=== PATIENT | female | born 1970 | race Caucasian/White ===

== ENCOUNTER 2017-12-20 15:43 | Inpatient (IN) | payer MEDICAID, OTHER ==
[~2017-12-20] VITALS: Ht 162.6 cm; Wt 79.8 kg
[2017-12-20] MEDS ORDERED: LEVO50 PO (15:56)
[2017-12-20] MEDS ORDERED: OXCA300T PO (15:56)
[2017-12-20] MEDS ORDERED: MELO-107 PO (15:56)
[2017-12-20] MEDS ORDERED: QUET25TA PO (15:56)
[2017-12-20] MEDS ORDERED: HYDR-308 PO (15:56)
[2017-12-20] MEDS ORDERED: DIPH25 PO (15:56)
[2017-12-20] MEDS ORDERED: VITAD1000 PO (15:56)
[2017-12-20] MEDS ORDERED: PROP40TA7 PO (15:56)
[2017-12-20] MEDS ORDERED: DULO60CA44 PO (15:56)
[2017-12-20] MEDS ORDERED: MECL12.585 PO (15:56)
[2017-12-20] MEDS ORDERED: CYCL10 PO (15:56)
[2017-12-20] MEDS ORDERED: HYDR50CA10 PO (15:56)
[2017-12-20] MEDS ORDERED: BACL10TA PO (15:56)
[2017-12-20 16:42] LABS: BASOPHILS % (AUTO) 0.7 % (0.0-2.0); EOSINOPHILS % (AUTO) 0.7 % (1.0-6.0); HEMATOCRIT 41.8 % (36-46); HEMOGLOBIN 14.4 g/dL (12.0-16.0); LYMPHOCYTES # (AUTO) 2.2 K/uL (1.0-4.8); LYMPHOCYTES % (AUTO) 19.3 % (22.0-44.0); MEAN CORPUSCULAR HEMOGLOBIN 30.6 pg (26.0-34.0); MEAN CORPUSCULAR HGB CONC 34.4 G/dL (31.0-37.0); MEAN CORPUSCULAR VOLUME 89 fL (80-100); MONOCYTES % (AUTO) 8.5 % (2.0-9.0); NEUTROPHILS # (AUTO) 8.2 K/uL (1.8-7.7); NEUTROPHILS % (AUTO) 70.8 % (40.0-70.0); PLATELET COUNT (AUTO) 333 K/uL (150-450); RED CELL DISTRIBUTION WIDTH 14.2 % (11.5-14.5)
[2017-12-20 16:56] LABS: ANION GAP 12 mmol/L (8-16); CALCIUM, TOTAL 8.2 mg/dL (8.8-10.5); CARBON DIOXIDE 25 mmol/L (22-29); CHLORIDE 103 mmol/L (98-107); CREATININE 0.62 mg/dL (0.60-1.30); GLOMERULAR FILTR. RATE CALC > 60 mL/min (>60); GLUCOSE,RANDOM 101 mg/dL (70-110); POTASSIUM 3.8 mmol/L (3.5-5.1); SODIUM SERUM 140 mmol/L (136-145); UREA NITROGEN, BLOOD 6 mg/dL (7-18)
[2017-12-20 17:00] LABS: ALBUMIN 3.9 g/dL (3.4-5.0)
[2017-12-20 17:07] LABS: AMPHET/METH SCREEN,URINE NEGATIVE (NEGATIVE); BARBITURATE SCREEN, URINE NEGATIVE (NEGATIVE); BENZODIAZEPINES SCREEN,URINE NEGATIVE (NEGATIVE); COCAINE SCREEN,URINE NEGATIVE (NEGATIVE); METHADONE SCREEN, URINE NEGATIVE (NEGATIVE); OPIATE SCREEN,URINE POSITIVE (NEGATIVE)
[2017-12-20 17:13] LABS: ALANINE AMINOTRANSFERASE 31 U/L (12-78); ALKALINE PHOSPHATASE 72 U/L (46-116); ASPARTATE AMINOTRANSFERASE 31 U/L (15-37); BILIRUBIN,TOTAL 0.4 mg/dL (0.1-1.0)
[2017-12-20 17:16] LABS: PHENCYCLIDINE SCREEN,URINE NEGATIVE (NEGATIVE)
[2017-12-20 17:31] LABS: CANNABINOID SCREEN,URINE POSITIVE (NEGATIVE)
[2017-12-20] MEDS ORDERED: IBUPROFEN 400 MG TABLET PO PRN (19:00)
[2017-12-20] MEDS ORDERED: ACETAMINOPHEN 325 MG TABLET PO PRN (19:00)
[2017-12-20] MEDS: LORazepam 2 MG TABLET PO PRN (19:21)
[2017-12-20 21:27] VITALS: BP 120/70
[2017-12-20] MEDS: ZOLPIDEM TARTRATE 10 MG TABLET PO PRN (21:34)
[2017-12-20] MEDS ORDERED: PNEUMOCOCCAL VACCINE POLYVALENT 0.5 ML VIAL [PPSV23] IM ONE (22:15)
[2017-12-20] MEDS ORDERED: PETROLATUM,WHITE 71 GM JELLY TP PRN (22:15)
[2017-12-20] MEDS ORDERED: ALBUTEROL SULFATE HFA 90 MCG/PUFF 8 GM INHALER IH PRN (22:15)
[2017-12-20] MEDS ORDERED: LOPERAMIDE HCL 2 MG CAPSULE PO PRN (22:15)
[2017-12-20] MEDS ORDERED: GuaiFENesin/D-METHORPHAN [SUGAR-FREE] 200-20MG/10 ML SYRUP UDCUP PO PRN (22:15)
[2017-12-20] MEDS ORDERED: ONDANSETRON HCL 4 MG TABLET PO PRN (22:15)
[2017-12-20] MEDS ORDERED: NICOTINE 14 MG/24 HOUR PATCH TD PRN (22:15)
[2017-12-21 06:05] VITALS: BP 112/65
[2017-12-21 08:29] LABS: BASOPHILS % (AUTO) 0.4 % (0.0-2.0); EOSINOPHILS % (AUTO) 1.5 % (1.0-6.0); HEMATOCRIT 45.7 % (36-46); HEMOGLOBIN 15.4 g/dL (12.0-16.0); LYMPHOCYTES # (AUTO) 1.7 K/uL (1.0-4.8); LYMPHOCYTES % (AUTO) 25.7 % (22.0-44.0); MEAN CORPUSCULAR HEMOGLOBIN 30.8 pg (26.0-34.0); MEAN CORPUSCULAR HGB CONC 33.7 G/dL (31.0-37.0); MEAN CORPUSCULAR VOLUME 91 fL (80-100); MONOCYTES # (AUTO) 0.7 K/uL (0.1-1.0); MONOCYTES % (AUTO) 10.7 % (2.0-9.0); NEUTROPHILS # (AUTO) 4.1 K/uL (1.8-7.7); NEUTROPHILS % (AUTO) 61.7 % (40.0-70.0); PLATELET COUNT (AUTO) 321 K/uL (150-450); RED BLOOD CELL COUNT(AUTO) 5.02 MIL/uL (4.00-5.20); RED CELL DISTRIBUTION WIDTH 14.1 % (11.5-14.5)
[2017-12-21 08:31] VITALS: BP 146/84
[2017-12-21 08:50] LABS: HEMOGLOBIN A1C 5.3 % (4.5-6.2)
[2017-12-21 09:13] LABS: ALANINE AMINOTRANSFERASE 27 U/L (12-78); ALBUMIN 3.5 g/dL (3.4-5.0); ALKALINE PHOSPHATASE 64 U/L (46-116); ANION GAP 8 mmol/L (8-16); ASPARTATE AMINOTRANSFERASE 24 U/L (15-37); BILIRUBIN,TOTAL 0.6 mg/dL (0.1-1.0); CALCIUM, TOTAL 8.6 mg/dL (8.8-10.5); CARBON DIOXIDE 28 mmol/L (22-29); CHLORIDE 103 mmol/L (98-107); CHOL/HDL RATIO 3.1 (3.9-5.7); CHOLESTEROL 189 mg/dL (131-200); CREATININE 0.67 mg/dL (0.60-1.30); GLOMERULAR FILTR. RATE CALC > 60 mL/min (>60); GLUCOSE,RANDOM 109 mg/dL (70-110); HDL CHOLESTEROL 61 mg/dL (40-60); LDL CHOL (CALC.) 104 mg/dL (0-130); POTASSIUM 3.8 mmol/L (3.5-5.1); SODIUM SERUM 139 mmol/L (136-145); THYROID STIMULATING HORMONE 1.14 uIU/mL (0.36-3.74); TOTAL PROTEIN, SERUM 6.1 g/dL (6.4-8.2); TRIGLYCERIDES 118 mg/dL (15-150); UREA NITROGEN, BLOOD 11 mg/dL (7-18)
[2017-12-21] MEDS ORDERED: CloNIDine HCL 0.1 MG TABLET PO PRN (09:30)
[2017-12-21] MEDS ORDERED: MAGNESIUM HYDROXIDE SUSPENSION 30 ML UDCUP PO PRN (09:30)
[2017-12-21] MEDS ORDERED: MAG HYDROX/AL HYDROX/SIMETH ES 30 ML SUSPENSION UDCUP PO PRN (09:30)
[2017-12-21] MEDS: HydrOXYzine PAMOATE 50 MG CAPSULE PO SCH ×2 (10:11→16:23)
[2017-12-21] MEDS: DULoxetine HCL 60 MG CAPSULE PO SCH (10:12)
[2017-12-21] MEDS: LORazepam 2 MG TABLET PO PRN (10:12)
[2017-12-21] MEDS: HALOPERIDOL 5 MG TABLET PO PRN ×2 (10:12→16:23)
[2017-12-21] MEDS: OXcarbazepine 300 MG TABLET PO SCH ×2 (10:12→16:23)
[2017-12-21] MEDS: QUEtiapine FUMARATE 25 MG TABLET PO SCH (10:12)
[2017-12-21 16:00] VITALS: BP 130/89
[2017-12-21] MEDS: MECLIZINE HCL 12.5 MG TABLET PO SCH (17:00)
[2017-12-21] MEDS: BACLOFEN 10 MG TABLET PO SCH (17:00)
[2017-12-21] MEDS: CYCLOBENZAPRINE HCL 10 MG TABLET PO SCH (21:59)
[2017-12-22] MEDS: MELOXICAM 7.5 MG TABLET PO SCH (07:05)
[2017-12-22 07:22] VITALS: BP 135/77
[2017-12-22 08:40] VITALS: BP 121/66
[2017-12-22] MEDS: DULoxetine HCL 60 MG CAPSULE PO SCH (09:19)
[2017-12-22] MEDS: CHOLECALCIFEROL (VIT D3) 1,000 UNITS TABLET PO SCH (09:20)
[2017-12-22] MEDS: QUEtiapine FUMARATE 25 MG TABLET PO SCH (09:20)
[2017-12-22] MEDS: OXcarbazepine 300 MG TABLET PO SCH ×2 (09:21→16:55)
[2017-12-22] MEDS: CYCLOBENZAPRINE HCL 10 MG TABLET PO SCH ×3 (09:21→16:54)
[2017-12-22] MEDS: HydrOXYzine PAMOATE 50 MG CAPSULE PO SCH ×2 (09:22→16:55)
[2017-12-22] MEDS: BACLOFEN 10 MG TABLET PO SCH ×2 (09:23→16:55)
[2017-12-22] MEDS: MECLIZINE HCL 12.5 MG TABLET PO SCH ×2 (09:23→16:55)
[2017-12-22] MEDS: LORazepam 2 MG TABLET PO PRN ×3 (09:52→20:34)
[2017-12-22] MEDS: NICOTINE 7 MG/24 HOUR PATCH TD SCH (10:56)
[2017-12-22 16:20] VITALS: BP 126/69
[2017-12-22] MEDS: ZOLPIDEM TARTRATE 10 MG TABLET PO PRN (20:34)
[2017-12-22 22:38] VITALS: BP 140/87
[2017-12-22] MEDS: HALOPERIDOL 5 MG TABLET PO PRN (22:39)
[2017-12-22] MEDS: HYDROCODONE/ACETAMINOPHEN 5-325 MG TABLET PO PRN (22:40)
[2017-12-23 06:35] VITALS: BP 102/60
[2017-12-23] MEDS: MELOXICAM 7.5 MG TABLET PO SCH (07:10)
[2017-12-23 09:00] VITALS: BP 140/98
[2017-12-23] MEDS: OXcarbazepine 300 MG TABLET PO SCH ×2 (09:00→16:08)
[2017-12-23] MEDS: DULoxetine HCL 60 MG CAPSULE PO SCH (09:00)
[2017-12-23] MEDS: HydrOXYzine PAMOATE 50 MG CAPSULE PO SCH ×2 (09:00→16:08)
[2017-12-23] MEDS: QUEtiapine FUMARATE 25 MG TABLET PO SCH (09:00)
[2017-12-23] MEDS: BACLOFEN 10 MG TABLET PO SCH ×2 (09:00→16:09)
[2017-12-23] MEDS: NICOTINE 7 MG/24 HOUR PATCH TD SCH (09:00)
[2017-12-23] MEDS: CHOLECALCIFEROL (VIT D3) 1,000 UNITS TABLET PO SCH (09:00)
[2017-12-23] MEDS: CYCLOBENZAPRINE HCL 10 MG TABLET PO SCH ×3 (09:00→16:07)
[2017-12-23] MEDS: MECLIZINE HCL 12.5 MG TABLET PO SCH ×2 (09:00→16:09)
[2017-12-23] MEDS: LORazepam 2 MG TABLET PO PRN ×2 (10:11→17:24)
[2017-12-23 11:42] VITALS: BP 141/96
[2017-12-23] MEDS: HYDROCODONE/ACETAMINOPHEN 5-325 MG TABLET PO PRN ×2 (11:42→18:48)
[2017-12-23] MEDS: MetFORMIN HCL 500 MG TABLET PO SCH (12:00)
[2017-12-23] MEDS ORDERED: SUMAtriptan SUCCINATE 25 MG TABLET PO PRN (12:30)
[2017-12-23] MEDS: HALOPERIDOL 5 MG TABLET PO PRN (16:08)
[2017-12-23] MEDS: KETOCONAZOLE 2% 15 GM CREAM TP SCH (16:14)
[2017-12-23 16:25] VITALS: BP 123/82
[2017-12-23 18:45] VITALS: BP 145/84
[2017-12-23] MEDS: ATORVASTATIN CALCIUM 10 MG TABLET PO SCH (20:53)
[2017-12-23] MEDS: ZOLPIDEM TARTRATE 10 MG TABLET PO PRN (20:53)
[2017-12-24] MEDS: MELOXICAM 7.5 MG TABLET PO SCH (06:43)
[2017-12-24] MEDS: LEVOTHYROXINE SODIUM 50 MCG TABLET PO SCH (06:43)
[2017-12-24] MEDS: MetFORMIN HCL 500 MG TABLET PO SCH (06:43)
[2017-12-24 06:50] VITALS: BP 139/100
[2017-12-24] MEDS: HYDROCODONE/ACETAMINOPHEN 5-325 MG TABLET PO PRN ×2 (06:54→16:44)
[2017-12-24 07:27] VITALS: BP 139/90
[2017-12-24 08:20] VITALS: BP 134/66
[2017-12-24] MEDS: MECLIZINE HCL 12.5 MG TABLET PO SCH ×2 (09:36→16:42)
[2017-12-24] MEDS: LOSARTAN POTASSIUM 50 MG TABLET PO SCH (09:36)
[2017-12-24] MEDS: BACLOFEN 10 MG TABLET PO SCH ×2 (09:36→16:43)
[2017-12-24] MEDS: CYCLOBENZAPRINE HCL 10 MG TABLET PO SCH ×3 (09:37→16:43)
[2017-12-24] MEDS: OXcarbazepine 300 MG TABLET PO SCH ×2 (09:37→16:44)
[2017-12-24] MEDS: DULoxetine HCL 60 MG CAPSULE PO SCH (09:37)
[2017-12-24] MEDS: KETOCONAZOLE 2% 15 GM CREAM TP SCH ×2 (09:37→16:45)
[2017-12-24] MEDS: HydrOXYzine PAMOATE 50 MG CAPSULE PO SCH ×2 (09:38→16:44)
[2017-12-24] MEDS: CHOLECALCIFEROL (VIT D3) 1,000 UNITS TABLET PO SCH (09:38)
[2017-12-24] MEDS: NICOTINE 7 MG/24 HOUR PATCH TD SCH (09:41)
[2017-12-24] MEDS: LORazepam 2 MG TABLET PO PRN ×2 (10:10→16:44)
[2017-12-24] MEDS: HALOPERIDOL 5 MG TABLET PO PRN (13:08)
[2017-12-24 16:44] VITALS: BP 130/92
[2017-12-24] MEDS: QUEtiapine FUMARATE 300 MG TABLET PO SCH (20:15)
[2017-12-24] MEDS: ATORVASTATIN CALCIUM 10 MG TABLET PO SCH (20:15)
[2017-12-24] MEDS: ZOLPIDEM TARTRATE 10 MG TABLET PO PRN (20:38)
[2017-12-25] MEDS: MetFORMIN HCL 500 MG TABLET PO SCH (06:38)
[2017-12-25] MEDS: MELOXICAM 7.5 MG TABLET PO SCH (06:39)
[2017-12-25] MEDS: LEVOTHYROXINE SODIUM 50 MCG TABLET PO SCH (06:39)
[2017-12-25 07:01] VITALS: BP 129/64
[2017-12-25 08:08] VITALS: BP 139/75
[2017-12-25] MEDS: KETOCONAZOLE 2% 15 GM CREAM TP SCH ×2 (09:34→16:39)
[2017-12-25] MEDS: HydrOXYzine PAMOATE 50 MG CAPSULE PO SCH ×2 (09:35→16:39)
[2017-12-25] MEDS: CYCLOBENZAPRINE HCL 10 MG TABLET PO SCH ×3 (09:35→16:38)
[2017-12-25] MEDS: DULoxetine HCL 60 MG CAPSULE PO SCH (09:35)
[2017-12-25] MEDS: CHOLECALCIFEROL (VIT D3) 1,000 UNITS TABLET PO SCH (09:35)
[2017-12-25] MEDS: DOCUSATE SODIUM 100 MG CAPSULE PO PRN (09:35)
[2017-12-25] MEDS: OXcarbazepine 300 MG TABLET PO SCH ×2 (09:35→16:39)
[2017-12-25] MEDS: MECLIZINE HCL 12.5 MG TABLET PO SCH ×2 (09:35→16:38)
[2017-12-25] MEDS: LOSARTAN POTASSIUM 50 MG TABLET PO SCH (09:36)
[2017-12-25] MEDS: BACLOFEN 10 MG TABLET PO SCH ×2 (09:37→16:39)
[2017-12-25] MEDS: NICOTINE 7 MG/24 HOUR PATCH TD SCH (09:38)
[2017-12-25] MEDS: LORazepam 2 MG TABLET PO PRN ×3 (10:51→23:45)
[2017-12-25 11:04] VITALS: BP 142/95
[2017-12-25] MEDS: HYDROCODONE/ACETAMINOPHEN 5-325 MG TABLET PO PRN ×2 (11:04→17:53)
[2017-12-25 17:53] VITALS: BP 150/89
[2017-12-25 18:53] VITALS: BP 136/89
[2017-12-25] MEDS: ZOLPIDEM TARTRATE 10 MG TABLET PO PRN (20:32)
[2017-12-25] MEDS: QUEtiapine FUMARATE 300 MG TABLET PO SCH (20:32)
[2017-12-25] MEDS: ATORVASTATIN CALCIUM 10 MG TABLET PO SCH (20:32)
[2017-12-26 03:08] VITALS: BP 138/88
[2017-12-26] MEDS: LEVOTHYROXINE SODIUM 50 MCG TABLET PO SCH (06:35)
[2017-12-26] MEDS: MetFORMIN HCL 500 MG TABLET PO SCH (06:35)
[2017-12-26] MEDS: MELOXICAM 7.5 MG TABLET PO SCH (06:35)
[2017-12-26 08:15] VITALS: BP 126/81
[2017-12-26] MEDS: DULoxetine HCL 60 MG CAPSULE PO SCH (09:28)
[2017-12-26] MEDS: OXcarbazepine 300 MG TABLET PO SCH ×2 (09:28→17:14)
[2017-12-26] MEDS: CHOLECALCIFEROL (VIT D3) 1,000 UNITS TABLET PO SCH (09:28)
[2017-12-26] MEDS: HydrOXYzine PAMOATE 50 MG CAPSULE PO SCH ×2 (09:28→17:14)
[2017-12-26] MEDS: CYCLOBENZAPRINE HCL 10 MG TABLET PO SCH ×3 (09:28→17:14)
[2017-12-26] MEDS: KETOCONAZOLE 2% 15 GM CREAM TP SCH ×2 (09:29→17:14)
[2017-12-26] MEDS: MECLIZINE HCL 12.5 MG TABLET PO SCH ×2 (09:29→17:14)
[2017-12-26] MEDS: LOSARTAN POTASSIUM 50 MG TABLET PO SCH (09:29)
[2017-12-26] MEDS: BACLOFEN 10 MG TABLET PO SCH ×2 (09:32→17:17)
[2017-12-26] MEDS: NICOTINE 7 MG/24 HOUR PATCH TD SCH (09:32)
[2017-12-26] MEDS: LORazepam 2 MG TABLET PO PRN ×2 (12:40→17:17)
[2017-12-26 13:33] VITALS: BP 148/98
[2017-12-26] MEDS: HYDROCODONE/ACETAMINOPHEN 5-325 MG TABLET PO PRN (13:36)
[2017-12-26 14:36] VITALS: BP 134/94
[2017-12-26 16:31] VITALS: BP 138/98
[2017-12-26] MEDS: QUEtiapine FUMARATE 25 MG TABLET PO SCH (17:15)
[2017-12-26] MEDS: HALOPERIDOL 5 MG TABLET PO PRN (17:17)
[2017-12-26] MEDS: ATORVASTATIN CALCIUM 10 MG TABLET PO SCH (20:12)
[2017-12-26] MEDS: QUEtiapine FUMARATE 300 MG TABLET PO SCH (20:12)
[2017-12-26] MEDS: ZOLPIDEM TARTRATE 10 MG TABLET PO PRN (20:12)
[2017-12-27] MEDS: MELOXICAM 7.5 MG TABLET PO SCH (06:44)
[2017-12-27] MEDS: LEVOTHYROXINE SODIUM 50 MCG TABLET PO SCH (06:44)
[2017-12-27] MEDS: MetFORMIN HCL 500 MG TABLET PO SCH (06:45)
[2017-12-27 06:50] VITALS: BP 151/100
[2017-12-27] MEDS: LORazepam 2 MG TABLET PO PRN (06:59)
[2017-12-27] MEDS: HALOPERIDOL 5 MG TABLET PO PRN (06:59)
[2017-12-27 08:06] VITALS: BP 138/94
[2017-12-27] MEDS: MECLIZINE HCL 12.5 MG TABLET PO SCH (08:40)
[2017-12-27] MEDS: HydrOXYzine PAMOATE 50 MG CAPSULE PO SCH (08:40)
[2017-12-27] MEDS: DOCUSATE SODIUM 100 MG CAPSULE PO PRN (08:40)
[2017-12-27] MEDS: LOSARTAN POTASSIUM 50 MG TABLET PO SCH (08:40)
[2017-12-27] MEDS: BACLOFEN 10 MG TABLET PO SCH (08:40)
[2017-12-27] MEDS: DULoxetine HCL 60 MG CAPSULE PO SCH (08:41)
[2017-12-27] MEDS: QUEtiapine FUMARATE 25 MG TABLET PO SCH (08:41)
[2017-12-27] MEDS: CHOLECALCIFEROL (VIT D3) 1,000 UNITS TABLET PO SCH (08:41)
[2017-12-27] MEDS: OXcarbazepine 300 MG TABLET PO SCH (08:41)
[2017-12-27] MEDS: NICOTINE 7 MG/24 HOUR PATCH TD SCH (08:41)
[2017-12-27] MEDS: CYCLOBENZAPRINE HCL 10 MG TABLET PO SCH (08:41)
[2017-12-27] MEDS: KETOCONAZOLE 2% 15 GM CREAM TP SCH (08:42)
[2017-12-27] MEDS ORDERED: KETO15CR2 TP (11:52)
[2017-12-27] MEDS ORDERED: ATOR10TA84 PO (12:00)
[2017-12-27] MEDS ORDERED: LOSA25TA2 PO (12:00)
[2017-12-27] MEDS ORDERED: METF500T PO (12:00)
[2017-12-27] MEDS ORDERED: QUET50TA PO (12:01)
[2017-12-27] MEDS ORDERED: QUET300T2 PO (12:01)
== END 2017-12-27 13:17 | disposition home or self-care (01) | DRG 750 ==
LOC: EMS 15:44 → B3A 19:30
PROVIDERS: ADMIT Psychiatry & Neurology Child & Adolescent Psychiatry; ATTEND Psychiatry & Neurology Child & Adolescent Psychiatry
DX: F25.0 Schizoaffective disorder, bipolar type (principal); I10 Essential (primary) hypertension; J45.909 Unspecified asthma, uncomplicated; E78.00 Pure hypercholesterolemia, unspecified; G47.30 Sleep apnea, unspecified; G43.909 Migraine, unspecified, not intractable, without status migrainosus; E78.5 Hyperlipidemia, unspecified; E55.9 Vitamin D deficiency, unspecified; E03.9 Hypothyroidism, unspecified; F32.9 Major depressive disorder, single episode, unspecified; D72.829 Elevated white blood cell count, unspecified; F99 Mental disorder, not otherwise specified; F41.9 Anxiety disorder, unspecified; Z88.8 Allergy status to other drugs, medicaments and biological substances; Z81.8 Family history of other mental and behavioral disorders; Z79.899 Other long term (current) drug therapy
CPT/HCPCS: 83036; 84443; 99285; G0480

== ENCOUNTER 2018-01-04 22:33 | Emergency (ER) | payer MEDICAID, OTHER ==
[~2018-01-04] VITALS: Ht 162.6 cm; Wt 75.0 kg
[~2018-01-04 22:33] MED LIST: ATOR10TA84 PO; BACL10TA PO; CYCL10 PO; DULO60CA44 PO; HYDR50CA10 PO; KETO15CR2 TP; LEVO50 PO; LOSA25TA2 PO; MECL12.585 PO; MELO-107 PO; METF500T PO; OXCA300T PO; QUET300T2 PO; QUET50TA PO; VITAD1000 PO
[2018-01-04 22:48] LABS: GLUCOSE,POINT OF CARE 135 MG/DL (70-110)
[2018-01-04 23:03] LABS: BASOPHILS % (AUTO) 0.7 % (0.0-2.0); EOSINOPHILS % (AUTO) 1.1 % (1.0-6.0); HEMATOCRIT 43.4 % (36-46); HEMOGLOBIN 14.9 g/dL (12.0-16.0); LYMPHOCYTES # (AUTO) 3.2 K/uL (1.0-4.8); LYMPHOCYTES % (AUTO) 25.3 % (22.0-44.0); MEAN CORPUSCULAR HEMOGLOBIN 30.6 pg (26.0-34.0); MEAN CORPUSCULAR HGB CONC 34.4 G/dL (31.0-37.0); MEAN CORPUSCULAR VOLUME 89 fL (80-100); MONOCYTES # (AUTO) 1.2 K/uL (0.1-1.0); MONOCYTES % (AUTO) 9.4 % (2.0-9.0); NEUTROPHILS # (AUTO) 8.1 K/uL (1.8-7.7); NEUTROPHILS % (AUTO) 63.5 % (40.0-70.0); PLATELET COUNT (AUTO) 320 K/uL (150-450); RED BLOOD CELL COUNT(AUTO) 4.88 MIL/uL (4.00-5.20); RED CELL DISTRIBUTION WIDTH 13.6 % (11.5-14.5)
[2018-01-04 23:09] LABS: AMPHET/METH SCREEN,URINE NEGATIVE (NEGATIVE); BARBITURATE SCREEN, URINE NEGATIVE (NEGATIVE); BENZODIAZEPINES SCREEN,URINE POSITIVE (NEGATIVE); CANNABINOID SCREEN,URINE POSITIVE (NEGATIVE); COCAINE SCREEN,URINE NEGATIVE (NEGATIVE); METHADONE SCREEN, URINE NEGATIVE (NEGATIVE); OPIATE SCREEN,URINE POSITIVE (NEGATIVE)
[2018-01-04 23:10] LABS: PHENCYCLIDINE SCREEN,URINE NEGATIVE (NEGATIVE)
[2018-01-04 23:17] LABS: ALANINE AMINOTRANSFERASE 44 U/L (12-78); ALBUMIN 3.5 g/dL (3.4-5.0); ALKALINE PHOSPHATASE 75 U/L (46-116); ANION GAP 10 mmol/L (8-16); ASPARTATE AMINOTRANSFERASE 45 U/L (15-37); BILIRUBIN,TOTAL 0.6 mg/dL (0.1-1.0); CALCIUM, TOTAL 9.1 mg/dL (8.8-10.5); CARBON DIOXIDE 27 mmol/L (22-29); CHLORIDE 102 mmol/L (98-107); CREATININE 0.81 mg/dL (0.60-1.30); GLOMERULAR FILTR. RATE CALC > 60 mL/min (>60); GLUCOSE,RANDOM 115 mg/dL (70-110); POTASSIUM 3.2 mmol/L (3.5-5.1); SODIUM SERUM 139 mmol/L (136-145); TOTAL PROTEIN, SERUM 6.8 g/dL (6.4-8.2)
[2018-01-04 23:28] LABS: UREA NITROGEN, BLOOD 7 mg/dL (7-18)
[2018-01-05] MEDS ORDERED: POTASSIUM CHLORIDE 20 MEQ ER TABLET PO ONE
[2018-01-05] MEDS ORDERED: DiphenhydrAMINE HCL 25 MG CAPSULE PO ONE (00:15)
[2018-01-05] MEDS ORDERED: LORazepam 2 MG TABLET PO ONE (00:15)
[2018-01-05 00:19] VITALS: BP 162/93
== END 2018-01-05 00:29 | disposition home or self-care (01) ==
LOC: EMS 22:33
DX: F25.9 Schizoaffective disorder, unspecified (principal); E87.6 Hypokalemia; I10 Essential (primary) hypertension; E78.00 Pure hypercholesterolemia, unspecified; F31.9 Bipolar disorder, unspecified; F41.9 Anxiety disorder, unspecified; J45.909 Unspecified asthma, uncomplicated; Z88.8 Allergy status to other drugs, medicaments and biological substances; Z79.84 Long term (current) use of oral hypoglycemic drugs; Z79.899 Other long term (current) drug therapy
CPT/HCPCS: 36415; 80053; 80307; 82962; 85025; 99284; G0480

== ENCOUNTER 2018-11-02 02:59 | Emergency (ER) | payer OTHER ==
[~2018-11-02] VITALS: Ht 162.6 cm; Wt 72.7 kg
[~2018-11-02 02:59] MED LIST changes: -OXCA300T PO; +OXCA300T29 PO
[2018-11-02] MEDS ORDERED: LOSA50TA64 PO (03:18)
[2018-11-02] MEDS ORDERED: ARIP5TAB8 PO (03:18)
[2018-11-02] MEDS ORDERED: PANT40TA25 PO (03:18)
[2018-11-02 03:19] VITALS: BP 113/83
[2018-11-02 03:29] LABS: GLUCOSE,POINT OF CARE 111 MG/DL (70-110)
[2018-11-02 04:24] LABS: BASOPHILS % (AUTO) 0.5 % (0.0-2.0); HEMATOCRIT 42.6 % (36-46); HEMOGLOBIN 13.9 g/dL (12.0-16.0); LYMPHOCYTES # (AUTO) 2.6 K/uL (1.0-4.8); LYMPHOCYTES % (AUTO) 26.3 % (22.0-44.0); MEAN CORPUSCULAR HEMOGLOBIN 29.9 pg (26.0-34.0); MEAN CORPUSCULAR HGB CONC 32.6 G/dL (31.0-37.0); MEAN CORPUSCULAR VOLUME 92 fL (80-100); MONOCYTES # (AUTO) 0.9 K/uL (0.1-1.0); MONOCYTES % (AUTO) 8.8 % (2.0-9.0); NEUTROPHILS # (AUTO) 6.1 K/uL (1.8-7.7); NEUTROPHILS % (AUTO) 62.4 % (40.0-70.0); PLATELET COUNT (AUTO) 353 K/uL (150-450); RED BLOOD CELL COUNT(AUTO) 4.64 MIL/uL (4.00-5.20); RED CELL DISTRIBUTION WIDTH 14.4 % (11.5-14.5)
[2018-11-02 04:34] LABS: ANION GAP 7 mmol/L (8-16); CARBON DIOXIDE 30 mmol/L (22-29); CHLORIDE 102 mmol/L (98-107); GLOMERULAR FILTR. RATE CALC > 60 mL/min (>60); GLUCOSE,RANDOM 98 mg/dL (70-110); POTASSIUM 3.9 mmol/L (3.5-5.1); SODIUM SERUM 139 mmol/L (136-145); UREA NITROGEN, BLOOD 12 mg/dL (7-18)
[2018-11-02 04:48] LABS: ALANINE AMINOTRANSFERASE 33 U/L (12-78); ALBUMIN 3.5 g/dL (3.4-5.0); ALKALINE PHOSPHATASE 60 U/L (46-116); ASPARTATE AMINOTRANSFERASE 19 U/L (15-37); BILIRUBIN,TOTAL 0.2 mg/dL (0.1-1.0); HCG,QUANTITATIVE < 1 mIU/mL (0-6); TOTAL PROTEIN, SERUM 6.7 g/dL (6.4-8.2)
== END 2018-11-02 06:00 | disposition home or self-care (01) ==
LOC: EMS 03:01
DX: T16.2XXA Foreign body in left ear, initial encounter (principal); F20.9 Schizophrenia, unspecified; J45.909 Unspecified asthma, uncomplicated; F31.9 Bipolar disorder, unspecified; E78.00 Pure hypercholesterolemia, unspecified; F41.9 Anxiety disorder, unspecified; I10 Essential (primary) hypertension; Z88.8 Allergy status to other drugs, medicaments and biological substances; W22.8XXA Striking against or struck by other objects, initial encounter; Y93.89 Activity, other specified; Y92.89 Other specified places as the place of occurrence of the external cause; Y99.8 Other external cause status
CPT/HCPCS: 36415; 80053; 82962; 84702; 85025; 99284; G0480; 69200

== ENCOUNTER 2018-11-24 08:45 | Inpatient (IN) | payer MEDICAID, OTHER ==
[~2018-11-24] VITALS: Ht 162.6 cm; Wt 79.2 kg
[~2018-11-24 08:45] MED LIST changes: +ARIP5TAB8 PO; -ATOR10TA84 PO; -BACL10TA PO; -CYCL10 PO; -DULO60CA44 PO; -HYDR50CA10 PO; -KETO15CR2 TP; -LEVO50 PO; -LOSA25TA2 PO; +LOSA50TA64 PO; -MECL12.585 PO; -MELO-107 PO; -METF500T PO; -OXCA300T29 PO; +PANT40TA25 PO; -QUET50TA PO; -VITAD1000 PO
[2018-11-24 09:34] LABS: BASOPHILS % (AUTO) 0.4 % (0.0-2.0); EOSINOPHILS % (AUTO) 0.4 % (1.0-6.0); HEMATOCRIT 41.7 % (36-46); HEMOGLOBIN 13.7 g/dL (12.0-16.0); LYMPHOCYTES # (AUTO) 1.2 K/uL (1.0-4.8); MEAN CORPUSCULAR HEMOGLOBIN 29.8 pg (26.0-34.0); MEAN CORPUSCULAR HGB CONC 32.9 G/dL (31.0-37.0); MEAN CORPUSCULAR VOLUME 91 fL (80-100); MONOCYTES # (AUTO) 0.6 K/uL (0.1-1.0); MONOCYTES % (AUTO) 5.7 % (2.0-9.0); NEUTROPHILS # (AUTO) 9.2 K/uL (1.8-7.7); NEUTROPHILS % (AUTO) 82.5 % (40.0-70.0); PLATELET COUNT (AUTO) 403 K/uL (150-450); RED BLOOD CELL COUNT(AUTO) 4.61 MIL/uL (4.00-5.20); RED CELL DISTRIBUTION WIDTH 14.5 % (11.5-14.5)
[2018-11-24] MEDS ORDERED: DIVA125T32 PO (09:38)
[2018-11-24] MEDS ORDERED: LOSA25TA41 PO (09:38)
[2018-11-24] MEDS ORDERED: RISP.5 PO (09:38)
[2018-11-24] MEDS ORDERED: LEVO50 PO (09:38)
[2018-11-24 09:46] LABS: ANION GAP 8 mmol/L (8-16); CALCIUM, TOTAL 9.4 mg/dL (8.8-10.5); CARBON DIOXIDE 27 mmol/L (22-29); CHLORIDE 102 mmol/L (98-107); CREATININE 0.56 mg/dL (0.60-1.30); GLOMERULAR FILTR. RATE CALC > 60 mL/min (>60); GLUCOSE,RANDOM 110 mg/dL (70-110); POTASSIUM 3.7 mmol/L (3.5-5.1); SODIUM SERUM 137 mmol/L (136-145); UREA NITROGEN, BLOOD 9 mg/dL (7-18)
[2018-11-24 09:57] LABS: ALANINE AMINOTRANSFERASE 28 U/L (12-78); ALBUMIN 3.9 g/dL (3.4-5.0); ALKALINE PHOSPHATASE 70 U/L (46-116); ASPARTATE AMINOTRANSFERASE 19 U/L (15-37); BILIRUBIN,TOTAL 0.6 mg/dL (0.1-1.0); HCG,QUANTITATIVE < 1 mIU/mL (0-6); TOTAL PROTEIN, SERUM 7.6 g/dL (6.4-8.2)
[2018-11-24 10:24] LABS: AMPHET/METH SCREEN,URINE NEGATIVE (NEGATIVE); BARBITURATE SCREEN, URINE NEGATIVE (NEGATIVE); BENZODIAZEPINES SCREEN,URINE NEGATIVE (NEGATIVE); CANNABINOID SCREEN,URINE NEGATIVE (NEGATIVE); COCAINE SCREEN,URINE NEGATIVE (NEGATIVE); METHADONE SCREEN, URINE NEGATIVE (NEGATIVE); OPIATE SCREEN,URINE NEGATIVE (NEGATIVE)
[2018-11-24 10:29] LABS: PHENCYCLIDINE SCREEN,URINE NEGATIVE (NEGATIVE)
[2018-11-24] MEDS ORDERED: QUET100T PO (10:34)
[2018-11-24] MEDS ORDERED: QUET25TA PO (10:34)
[2018-11-24] MEDS ORDERED: HYDR50CA10 PO (10:34)
[2018-11-24] MEDS ORDERED: ARIP10TA8 PO (10:34)
[2018-11-24] MEDS ORDERED: HALOPERIDOL LACTATE 5 MG/ML VIAL IM ONE (10:45)
[2018-11-24] MEDS ORDERED: LORazepam 2 MG/ML VIAL IM ONE (10:45)
[2018-11-24] MEDS ORDERED: DiphenhydrAMINE HCL 50 MG/ML VIAL IM ONE (10:45)
[2018-11-24] MEDS ORDERED: ZIPRASIDONE MESYLATE 20 MG/VIAL IM ONE (11:15)
[2018-11-24] MEDS: QUEtiapine FUMARATE 100 MG TABLET PO SCH (20:48)
[2018-11-25] MEDS: QUEtiapine FUMARATE 100 MG TABLET PO SCH ×2 (08:02→16:10)
[2018-11-25] MEDS ORDERED: ZIPRASIDONE MESYLATE 20 MG/VIAL IM ONE (08:15)
[2018-11-25] MEDS ORDERED: DiphenhydrAMINE HCL 50 MG/ML VIAL IM ONE (08:15)
[2018-11-25] MEDS ORDERED: LORazepam 2 MG/ML VIAL IM ONE (08:15)
[2018-11-25 10:41] VITALS: BP 141/80
[2018-11-25] MEDS: LOSARTAN POTASSIUM 25 MG TABLET PO SCH (12:46)
[2018-11-25 19:33] VITALS: BP 136/74
[2018-11-25] MEDS: IBUPROFEN 600 MG TABLET PO PRN (19:33)
[2018-11-25] MEDS: LORazepam 2 MG TABLET PO PRN (20:15)
[2018-11-25 20:24] VITALS: BP 138/81
[2018-11-25] MEDS: ZOLPIDEM TARTRATE 10 MG TABLET PO PRN (22:17)
[2018-11-26 02:20] VITALS: BP 140/98
[2018-11-26] MEDS: IBUPROFEN 600 MG TABLET PO PRN ×2 (02:21→08:46)
[2018-11-26] MEDS: LEVOTHYROXINE SODIUM 50 MCG TABLET PO SCH (06:57)
[2018-11-26 08:17] LABS: THYROID STIMULATING HORMONE 1.52 uIU/mL (0.36-3.74)
[2018-11-26 08:43] VITALS: BP 131/95
[2018-11-26] MEDS: LOSARTAN POTASSIUM 25 MG TABLET PO SCH (08:46)
[2018-11-26] MEDS: LORazepam 2 MG TABLET PO PRN ×2 (08:46→16:46)
[2018-11-26] MEDS: QUEtiapine FUMARATE 100 MG TABLET PO SCH (08:46)
[2018-11-26] MEDS: PANTOPRAZOLE SODIUM 40 MG DR TABLET PO SCH (08:46)
[2018-11-26] MEDS ORDERED: MELATONIN 5 MG TABLET PO PRN (13:00)
[2018-11-26] MEDS: HALOPERIDOL 5 MG TABLET PO PRN (16:46)
[2018-11-26] MEDS: QUEtiapine FUMARATE 300 MG TABLET PO SCH (16:47)
[2018-11-26 17:55] VITALS: BP 129/72
[2018-11-26] MEDS: MELATONIN 5 MG TABLET PO SCH (20:39)
[2018-11-27 00:46] VITALS: BP 126/78
[2018-11-27] MEDS: ZOLPIDEM TARTRATE 10 MG TABLET PO PRN (02:30)
[2018-11-27] MEDS: LORazepam 2 MG TABLET PO PRN ×3 (02:30→18:12)
[2018-11-27] MEDS: LEVOTHYROXINE SODIUM 50 MCG TABLET PO SCH (06:58)
[2018-11-27 08:59] VITALS: BP 136/89
[2018-11-27] MEDS: QUEtiapine FUMARATE 300 MG TABLET PO SCH (09:00)
[2018-11-27] MEDS: HALOPERIDOL 5 MG TABLET PO PRN (09:01)
[2018-11-27] MEDS: PANTOPRAZOLE SODIUM 40 MG DR TABLET PO SCH (09:01)
[2018-11-27] MEDS: IBUPROFEN 600 MG TABLET PO PRN ×2 (09:01→17:10)
[2018-11-27] MEDS: LOSARTAN POTASSIUM 25 MG TABLET PO SCH (09:01)
[2018-11-27 17:11] VITALS: BP 123/73
[2018-11-27] MEDS: MELATONIN 5 MG TABLET PO SCH (20:29)
[2018-11-27] MEDS: QUEtiapine FUMARATE 200 MG TABLET PO SCH (20:29)
[2018-11-28] MEDS: LEVOTHYROXINE SODIUM 50 MCG TABLET PO SCH (06:28)
[2018-11-28] MEDS: PANTOPRAZOLE SODIUM 40 MG DR TABLET PO SCH (09:40)
[2018-11-28] MEDS: LOSARTAN POTASSIUM 25 MG TABLET PO SCH (09:40)
[2018-11-28] MEDS: QUEtiapine FUMARATE 100 MG TABLET PO SCH (09:40)
[2018-11-28 09:44] VITALS: BP 117/70
[2018-11-28] MEDS ORDERED: QUET100T PO (15:54)
[2018-11-28] MEDS: IBUPROFEN 600 MG TABLET PO PRN (16:06)
[2018-11-28] MEDS: LORazepam 2 MG TABLET PO PRN (16:08)
[2018-11-28] MEDS: QUEtiapine FUMARATE 200 MG TABLET PO SCH (20:16)
[2018-11-28] MEDS: MELATONIN 5 MG TABLET PO SCH (20:16)
[2018-11-29] MEDS ORDERED: MELA1TAB17 PO (04:31)
[2018-11-29] MEDS ORDERED: MELA5TAB3 PO (04:32)
[2018-11-29] MEDS: LEVOTHYROXINE SODIUM 50 MCG TABLET PO SCH (06:40)
[2018-11-29] MEDS: PANTOPRAZOLE SODIUM 40 MG DR TABLET PO SCH (09:01)
[2018-11-29] MEDS: QUEtiapine FUMARATE 100 MG TABLET PO SCH (09:01)
[2018-11-29] MEDS: LOSARTAN POTASSIUM 25 MG TABLET PO SCH (09:02)
[2018-11-29 10:00] VITALS: BP 115/68
[2018-11-29] MEDS: LORazepam 2 MG TABLET PO PRN (11:07)
[2018-11-29] MEDS ORDERED: LOSA25TA41 PO (11:11)
[2018-11-29] MEDS ORDERED: LEVO50 PO (11:11)
[2018-11-29] MEDS ORDERED: PANT40TA25 PO (11:11)
== END 2018-11-29 11:45 | disposition home or self-care (01) | DRG 750 ==
LOC: EMS 08:49 → 3EI 11-25 09:27
PROVIDERS: ADMIT Psychiatry & Neurology Psychiatry; ATTEND Psychiatry & Neurology Psychiatry
DX: F25.0 Schizoaffective disorder, bipolar type (principal); Z59.0 Homelessness; E03.9 Hypothyroidism, unspecified; E78.00 Pure hypercholesterolemia, unspecified; F41.9 Anxiety disorder, unspecified; I10 Essential (primary) hypertension; J45.909 Unspecified asthma, uncomplicated; F12.90 Cannabis use, unspecified, uncomplicated; G47.33 Obstructive sleep apnea (adult) (pediatric); K21.9 Gastro-esophageal reflux disease without esophagitis; Z88.0 Allergy status to penicillin; Z88.1 Allergy status to other antibiotic agents; Z88.2 Allergy status to sulfonamides; Z88.8 Allergy status to other drugs, medicaments and biological substances; Z79.899 Other long term (current) drug therapy; Z87.891 Personal history of nicotine dependence
CPT/HCPCS: 84436; 84443; 96372; G0480; J1200; J2060; J3486